=== PATIENT | female | born 1995 | race Caucasian/White ===

== ENCOUNTER 2023-09-21 16:58 | Outpatient (RCR) | payer OTHER, SELFPAY | END 2023-09-21 23:59 | disposition home or self-care (01) | LOC: RPT 16:58 | PROVIDERS: ATTENDING PHYSICIAN Obstetrics & Gynecology; PRIMARYCARE PHYSICIAN Nurse Practitioner Adult Health | DX: N39.3 Stress incontinence (female) (male) (principal); K59.00 Constipation, unspecified; M62.89 Other specified disorders of muscle; Z73.6 Limitation of activities due to disability | CPT/HCPCS: 97014; 97110; 97112; 97140; 97530 ==

== ENCOUNTER 2023-09-28 16:46 | Outpatient (RCR) | payer OTHER, SELFPAY | END 2023-10-06 13:04 | disposition home or self-care (01) | LOC: RPT 16:46 | PROVIDERS: ATTENDING PHYSICIAN Obstetrics & Gynecology; PRIMARYCARE PHYSICIAN Nurse Practitioner Adult Health | DX: N39.3 Stress incontinence (female) (male) (principal); K59.00 Constipation, unspecified; M62.89 Other specified disorders of muscle; Z73.6 Limitation of activities due to disability | CPT/HCPCS: 97014; 97110; 97112; 97140 ==

== ENCOUNTER → 2024-01-13 07:12 | Outpatient (REF) | payer OTHER, SELFPAY ==
[2024-01-13 07:37] LABS: % Basophils 0.6 % (0-2); % Eosinophils 2.8 % (0-6); % Immature Granulocytes 0.3 % (0-0.5); % Lymphocytes 33.9 % (20.5-51.1); % Neutrophils 55.4 % (42.2-75.2); Absolute Eosinophils 0.2 10^3/uL (0-0.7); Absolute Lymphocytes 2.3 10^3/uL (1.2-3.4); Absolute Monocytes 0.5 10^3/uL (0.1-0.6); Absolute Neutrophils 3.7 10^3/uL (1.4-6.5); Hematocrit 41.3 % (37.0-47.0); Hemoglobin 14.5 g/dL (12.0-16.0); Mean Corp Hgb Conc. 35.1 g/dL (33.0-37.0); Mean Corpuscular Volume 88.2 fL (81.0-99.0); Mean Platelet Volume 9.8 fL (7.4-10.4); Nucleated Red Blood Cells % 0 %; Platelet Count 291 10^3/uL (130-400); Red Blood Cell Count 4.68 10^6/uL (4.20-5.40); Red Cell Dist. Width 12.3 % (11.5-14.5); White Blood Cell Count 6.7 10^3/uL (4.8-10.8)
[2024-01-13 07:55] LABS: ALT (SGPT) 11 U/L (0-35); AST (SGOT) 23 U/L (14-36); Alkaline Phosphatase 86 U/L (38-126); Blood Urea Nitrogen 16 mg/dl (7-17); Calcium 9.9 mg/dl (8.4-10.2); Carbon Dioxide 27 mmol/L (22-30); Chloride 104 mmol/L (98-107); Glucose 90 mg/dl (70-99); HDL Cholesterol 67 mg/dl; LDL Cholesterol, Calculated 81 mg/dl; Potassium 4.5 mmol/L (3.5-5.1); Sodium 139 mmol/L (135-145); Total Bilirubin 0.9 mg/dl (0.2-1.3); Total Cholesterol 158 mg/dl (50-199); Total Protein 7.5 g/dl (6.3-8.2); Triglyceride 52 mg/dl (10-149); Very Low Density Lipoprotein 10 mg/dl (0-30); eGFR > 60.00
[2024-01-13 08:25] LABS: TSH Reflex To Free T4 1.93 uIU/ml (0.47-4.68)
== END ==
LOC: REG 07:12
PROVIDERS: ATTENDING PHYSICIAN Family Medicine
DX: Z00.00 Encounter for general adult medical examination without abnormal findings (principal)
CPT/HCPCS: 36415; 80053; 80061; 84443; 85025

== ENCOUNTER → 2025-04-16 07:51 | Outpatient (REF) | payer OTHER, SELFPAY ==
[2025-04-16 08:29] LABS: Hematocrit 35.8 % (37.0-47.0); Hemoglobin 12.8 g/dL (12.0-16.0); Mean Corp Hgb Conc. 35.8 g/dL (33.0-37.0); Mean Corpuscular Volume 89.7 fL (81.0-99.0); Nucleated Red Blood Cells % 0 %; Platelet Count 229 10^3/uL (130-400); Red Cell Dist. Width 12.3 % (11.5-14.5)
[2025-04-16 10:17] LABS: ALT (SGPT) < 10 U/L (0-35); AST (SGOT) 17 U/L (14-36); Albumin 4.5 g/dl (3.5-5.0); Alkaline Phosphatase 43 U/L (38-126); Blood Urea Nitrogen 7 mg/dl (7-17); Calcium 9.4 mg/dl (8.4-10.2); Carbon Dioxide 25 mmol/L (22-30); Chloride 106 mmol/L (98-107); Glucose 74 mg/dl (70-99); HDL Cholesterol 70 mg/dl; LDL Cholesterol, Calculated 106 mg/dl; Potassium 4.1 mmol/L (3.5-5.1); Sodium 137 mmol/L (135-145); Total Protein 7.0 g/dl (6.3-8.2); Very Low Density Lipoprotein 13 mg/dl (0-30); eGFR > 60.00
== END ==
LOC: REG 07:51
PROVIDERS: ATTENDING PHYSICIAN Family Medicine
DX: Z00.00 Encounter for general adult medical examination without abnormal findings (principal)
CPT/HCPCS: 36415; 80053; 80061; 84443; 85025

== ENCOUNTER 2025-05-07 08:11 | Outpatient (RCR) | payer OTHER, SELFPAY | END 2025-05-07 23:59 | disposition home or self-care (01) | LOC: RPT 08:11 | PROVIDERS: ATTENDING PHYSICIAN Family Medicine | DX: S13.8XXD Sprain of joints and ligaments of other parts of neck, subsequent encounter (principal); M54.2 Cervicalgia; Z73.6 Limitation of activities due to disability | CPT/HCPCS: 97110; 97162 ==

== ENCOUNTER 2025-06-24 17:05 | Outpatient (RCR) | payer OTHER, SELFPAY | END 2025-06-24 23:59 | disposition home or self-care (01) | LOC: RPT 17:05 | PROVIDERS: ATTENDING PHYSICIAN Family Medicine | DX: S13.8XXD Sprain of joints and ligaments of other parts of neck, subsequent encounter (principal); M54.2 Cervicalgia; Z73.6 Limitation of activities due to disability | CPT/HCPCS: 97110; 97112; 97140 ==

== ENCOUNTER → 2025-07-03 10:14 | Outpatient (REF) | payer OTHER, SELFPAY | LOC: PNTC 10:14 | PROVIDERS: ATTENDING PHYSICIAN Student in an Organized Health Care Education/Training Program | DX: Z34.92 Encounter for supervision of normal pregnancy, unspecified, second trimester (principal); Z36.2 Encounter for other antenatal screening follow-up; Z87.59 Personal history of other complications of pregnancy, childbirth and the puerperium | CPT/HCPCS: 76816 ==

== ENCOUNTER 2025-07-15 09:30 | Outpatient (RCR) | payer OTHER, SELFPAY | END 2025-07-15 23:59 | disposition home or self-care (01) | LOC: RPT 09:30 | PROVIDERS: ATTENDING PHYSICIAN Family Medicine | DX: S13.8XXD Sprain of joints and ligaments of other parts of neck, subsequent encounter (principal); M54.2 Cervicalgia; Z73.6 Limitation of activities due to disability | CPT/HCPCS: 97110; 97112; 97140 ==